=== PATIENT | male | born 1960 | race Hispanic/Latino ===

== ENCOUNTER 2019-06-22 16:06 | Emergency (ER) | payer SELFPAY ==
[2019-06-22 18:10] LABS: Basophils # (Auto) 0.1 K/mm3 (0.0-0.1); Basophils % (Auto) 0.7 % (0.0-1.8); Eosinophils # (Auto) 0.1 K/mm3 (0.0-0.4); Hematocrit 43.1 % (35.5-45.6); Lymphocytes # (Auto) 1.8 K/mm3 (1.2-5.4); Lymphocytes % (Auto) 23.5 % (13.4-35.0); Mean Corpuscular HGB Conc 35 % (32-34); Mean Corpuscular Volume 88 fl (84-94); Monocytes # (Auto) 0.6 K/mm3 (0.0-0.8); Monocytes % (Auto) 7.2 % (0.0-7.3); Platelet Count 226 K/mm3 (140-440); Red Blood Count 4.88 M/mm3 (3.65-5.03); Red Cell Distribution Width 13.6 % (13.2-15.2)
[2019-06-22 18:27] LABS: BUN/Creatinine Ratio 19; Blood Urea Nitrogen 15 mg/dL (9-20); Calcium 9.3 mg/dL (8.4-10.2); Hemolysis Index 15
--- NOTE | 2019-06-22 18:29 | XRay Report ---
CHEST 2 VIEWS INDICATION / CLINICAL INFORMATION: cough. COMPARISON: None available. FINDINGS: SUPPORT DEVICES: None. HEART / MEDIASTINUM: No significant abnormality. LUNGS / PLEURA: No significant pulmonary or pleural abnormality. No pneumothorax. ADDITIONAL FINDINGS: Lungs are hyperinflated suggesting COPD. IMPRESSION: 1. No acute findings. Signer Name: Isaias Moseley MD Signed: 06/22/2019 6:24 PM Workstation Name: [id number]
--- NOTE | 2019-06-22 19:26 | Emergency Department Report ---
- General Chief Complaint: Upper Respiratory Infection Stated Complaint: FEVER,DRY COUGH/NO ENERGY Time Seen by Provider: 06/22/19 18:33 Source: patient, family Mode of arrival: Ambulatory Limitations: No Limitations - History of Present Illness MD Complaint: cough, rhinorrhea, nasal congestion -: days(s) (Off and on for the last 4 to 5 days states that he feels well at this time denies chest pain, palpitations, fever, chills, sweats) Consistency: constant Improves With: nothing Associated Symptoms: rhinorrhea, nasal congestion, cough. denies: diaphoresis, abdominal pain, nausea, vomiting, confusion, right sweats, weight loss - Related Data Previous Rx's Medication Instructions Recorded Last Taken Type Oxycodone HCl/Acetaminophen 1 each PO Q6HR PRN #20 tablet 11/25/14 Unknown Rx [Percocet 10/325 mg] Promethazine [Phenergan] 25 mg [place] Q6HR PRN #10 supp.rect 11/25/14 Unknown Rx Sulfamethoxazole/Trimethoprim 1 each PO BID #20 tablet 11/25/14 Unknown Rx [Bactrim DS TAB] Albuterol INH(or & Nicu Only) 2 puff IH QID PRN #1 inhalation 06/22/19 Unknown Rx [ProAir HFA Inhaler] Benzonatate [Tessalon Perles] 100 mg PO Q8HR #20 capsule 06/22/19 Unknown Rx predniSONE [Deltasone] 20 mg PO QDAY #5 tab 06/22/19 Unknown Rx Allergies Allergy/AdvReac Type Severity Reaction Status Date / Time No Known Allergies Allergy Unverified 11/25/14 09:13 ED Review of Systems ROS: Stated complaint: FEVER,DRY COUGH/NO ENERGY Other details as noted in HPI Comment: All other systems reviewed and negative ED Past Medical Hx - Past Medical History Hx Kidney Stones: Yes - Surgical History Additional Surgical History: LITHOTRIPSY - Social History Smoking Status: Current Every Day Smoker Substance Use Type: Marijuana - Medications Home Medications: Home Medications Medication Instructions Recorded Confirmed Last Taken Type Oxycodone HCl/Acetaminophen 1 each PO Q6HR PRN #20 tablet 11/25/14 Unknown Rx [Percocet 10/325 mg] Promethazine [Phenergan] 25 mg [place] Q6HR PRN #10 supp.rect 11/25/14 Unknown Rx Sulfamethoxazole/Trimethoprim 1 each PO BID #20 tablet 11/25/14 Unknown Rx [Bactrim DS TAB] Albuterol INH(or & Nicu Only) 2 puff IH QID PRN #1 inhalation 06/22/19 Unknown Rx [ProAir HFA Inhaler] Benzonatate [Tessalon Perles] 100 mg PO Q8HR #20 capsule 06/22/19 Unknown Rx predniSONE [Deltasone] 20 mg PO QDAY #5 tab 06/22/19 Unknown Rx ED Physical Exam - General Limitations: No Limitations General appearance: alert, in no apparent distress - Head Head exam: Present: atraumatic, normocephalic - Eye Eye exam: Present: normal appearance, PERRL, EOMI Pupils: Present: normal accommodation - ENT ENT exam: Present: normal exam, normal orophraynx, mucous membranes moist, TM's normal bilaterally, other (Nasal congestion some swelling to the left and right sinus. Small effusion behind the right tympanic membrane.) - Neck Neck exam: Present: normal inspection - Respiratory Respiratory exam: Present: normal lung sounds bilaterally. Absent: respiratory distress, chest wall tenderness, accessory muscle use, decreased breath sounds - Cardiovascular Cardiovascular Exam: Present: regular rate, normal rhythm. Absent: systolic murmur, diastolic murmur, rubs, gallop - GI/Abdominal GI/Abdominal exam: Present: soft, normal bowel sounds - Rectal Rectal exam: Present: deferred - Extremities Exam Extremities exam: Present: normal inspection, full ROM - Back Exam Back exam: Present: normal inspection. Absent: CVA tenderness (R), CVA tenderness (L) - Neurological Exam Neurological exam: Present: alert, oriented X3, CN II-XII intact - Psychiatric Psychiatric exam: Present: normal affect, normal mood - Skin Skin exam: Present: warm, dry, intact, normal color. Absent: rash ED Course Vital Signs 06/22/19 16:22 Temperature 98.8 F Pulse Rate 105 H Respiratory 20 Rate Blood Pressure 108/73 [Left] O2 Sat by Pulse 98 Oximetry ED Medical Decision Making - Lab Data Result diagrams: 06/22/19 17:47 06/22/19 17:47 - Radiology Data Radiology results: report reviewed (Chest x-ray x-ray shows no acute findings however lungs were hyperinflated suggesting COPD) - Medical Decision Making This patient presents with acute cough, most consistent with viral syndrome. Differential diagnosis includes bronchitis, viral syndrome. Presentation not consistent with acute bacterial pneumonia, asthma, transient airway hyperresponsiveness. Presentation not consistent with chronic causes of cough (including GERD, asthma, postnasal discharge, medication side effect, CHF, lung cancer or mass). Plan: Normal CXR, supportive care, reassess Critical care attestation.: If time is entered above; I have spent that time in minutes in the direct care of this critically ill patient, excluding procedure time. ED Disposition Clinical Impression: URI (upper respiratory infection) Disposition: TO HOME OR SELFCARE Is pt being admited?: No Does the pt Need Aspirin: No Condition: Stable Instructions: Upper Respiratory Infection (ED), Chronic Obstructive Pulmonary Disease (ED) Referrals: PRIMARY CARE, [Primary Care Provider] - 3-[address] [facility] [Provider Group] - 3-5 Days
[2019-06-22 19:38] VITALS: BP 116/74
== END 2019-06-22 19:50 | disposition home or self-care (01) ==
LOC: ED 16:06
DX: J06.9 Acute upper respiratory infection, unspecified (principal); F17.200 Nicotine dependence, unspecified, uncomplicated; F12.10 Cannabis abuse, uncomplicated
CPT/HCPCS: 36415; 71046; 80048; 85025